=== PATIENT | female | born 2005 | race Two or more races ===

== ENCOUNTER 2025-04-09 22:08 | Emergency (ER) | payer BC, SELFPAY ==
[2025-04-09 22:10] VITALS: BMI 25.3
[2025-04-09 23:10] VITALS: BP 121/53; PULSE 83; RESP 16; TEMP 36.7; O2SAT 99
--- NOTE | 2025-04-09 23:17 | XR_ITS ---
Examination: OB Transvaginal ultrasound of the pelvis, complete Technique: Transvaginal sonographic images pelvis performed using [place] scale imaging Exam date and time: April 09, 2025 11:34 PM INDICATIONS: Pelvic pain nausea vomiting beginning 3 days ago with positive test yesterday FINDINGS: Uterus 7.5 cm with pole 0.4 cm corresponding to 6 weeks 0 day gestational age Cardiac motion 113 bpm No subchorionic hemorrhage Right ovary 3.9 cm arterial flow Lateral view obscured by bowel gas IMPRESSION: Viable intrauterine gestation 6 weeks 0 days.
--- NOTE | 2025-04-09 23:18 | PD.EDRME ---
Rapid Medical Screening Exam [facility] Arrival date/time: 04/09/25 22:08 20F with history of marijuana use presents to ED with 3 days of N/V, ab/pelvic pain/cramping, and non-bloody diarrhea. Patient is about 6 weeks and has had some vaginal bleeding that resolved. Patient took Zofran w/o relief. Patient states she's also had fevers/chills, but denies URI symptoms. Chief Complaint: Nausea/Vomiting/Diarrhea Time Seen by Provider: 04/09/25 23:16 Vital signs: Vital Signs Temperature 98.1 F 04/09/25 23:10 Pulse Rate 83 04/09/25 23:10 Respiratory Rate 16 04/09/25 23:10 Blood Pressure 121/53 L 04/09/25 23:10 Pulse Oximetry (%) 99 04/09/25 23:10 Oxygen Delivery Method Room Air 04/09/25 23:10
[2025-04-10 00:24] LABS: Lactate (Lactic Acid) 1.1 mMol/L (0.4-2.0)
[2025-04-10] MEDS: DiphenhydrAMINE INJ 50 MG/ML VIAL 12.5 MG IVP (00:27)
[2025-04-10] MEDS: METOCLOPRAMIDE INJ 5 MG/ML VIAL 2 ML 10 MG IVP (00:29)
[2025-04-10 00:30] LABS: Basophils % (Auto) 1 % (0-2.5); Eosinophils % (Auto) 0 % (0-10); Hematocrit 35.4 % (36.0-46.0); Hemoglobin 12.8 g/dL (12.0-16.0); Immature Granulocytes % (Auto) 0 % (0-0); Immature Granulocytes Auto 0.02 Thou/mm3 (0.00-0.00); Lymphocytes # (Auto) 1.9 Thou/mm3 (1.0-4.8); Lymphocytes % (Auto) 25 % (10-50); Mean Corpuscular HGB Conc 36.2 g/dl (31.0-37.0); Mean Corpuscular Hemoglobin 30.3 pg (25.0-35.0); Mean Corpuscular Volume 84 fL (80-100); Monocytes # (Auto) 0.6 Thou/mm3 (0.0-0.8); Monocytes % (Auto) 8 % (0-12); Neutrophils # (Auto) 4.9 Thou/mm3 (1.8-7.7); Neutrophils % (Auto) 66 % (37-80); Nucleated Red Blood Cell % 0 /100 WBC (0); Platelet Count 344 Thou/mm3 (140-440); RDW Standard Deviation 38.8 fL (36.4-46.3); Red Blood Count 4.22 Miln/mm3 (4.00-5.20); White Blood Count 7.4 Thou/mm3 (3.6-11.0)
[2025-04-10 00:31] LABS: Bacteria,Urine Rare; Bilirubin,Urine Negative (Negative); Blood,Urine Negative (Negative); Clarity,Urine Turbid (Clear/Hazy); Collection Type, Urine Clean Catch; Color,Urine Yellow (Lt Yel-Yel); Glucose, Urine Negative (Negative); Ketones,Urine 4+ (Negative); Leukocyte Esterase,Urine Negative (Negative); Nitrite,Urine Negative (Negative); Protein,Urine 2+ (Neg - Trace); RBC,Urine 20 /hpf (0-3); Specific Gravity,Urine 1.046 (1.001-1.035); Squamous Epithelial Cell,Urine 5 /hpf (0-5); WBC,Urine 6 /hpf (0-5)
[2025-04-10 00:37] LABS: Amphetamine/Methamp Scrn,U Negative (Negative); Barbiturate Screen,Urine Negative (Negative); Benzodiazepines Screen,Urine Negative (Negative); Benzoylecgonine Screen, Ur Negative (Negative); Fentanyl Screen,Urine Negative (Negative); Opiate Screen,Urine Negative (Negative); THC Screen,Urine Positive (Negative)
[2025-04-10 00:41] VITALS: BP 125/85; PULSE 70; RESP 16; TEMP 37; O2SAT 99
[2025-04-10 00:49] LABS: Alanine Aminotransferase 14 U/L (10-49); Albumin/Globulin Ratio 1.9 (1.2-2.2); Alcohol, Blood Medical < 3.0 mg/dL (0-10.0); Alkaline Phosphatase 61 U/L (46-116); Anion Gap 12 (7-16); Aspartate Amino Transferase 15 U/L (0-34); BUN/Creatinine Ratio 10 Ratio (12-20); Blood Urea Nitrogen 9 mg/dL (9-23); Calcium 9.2 mg/dL (8.3-10.6); Calcium (Corrected) 9.2 mg/dL (8.5-10.1); Carbon Dioxide 23.8 mMol/L (20.0-31.0); Chloride 102 mMol/L (98-107); Creatinine (Component) 0.9 mg/dL (0.6-1.3); Globulin 2.7 gm/dL (2.3-3.5); Glucose 95 mg/dL (74-106); Lipase 36 U/L (12-53); Osmolality,Calculated 274 (275-295); Potassium 3.4 mMol/L (3.4-5.1); Sodium 138 mMol/L (136-145); Total Protein 7.7 gm/dL (5.7-8.2); eGFR > 60 See Note
[2025-04-10 00:55] LABS: Procalcitonin < 0.04 ng/ml (0.0-0.49)
[2025-04-10 01:11] VITALS: BP 115/80; PULSE 70; RESP 16; TEMP 37; O2SAT 99
[2025-04-10 01:23] LABS: Beta HCG,Quantitative 45687 mIU/mL (<5.0)
--- NOTE | 2025-04-10 01:52 | PRELIM_ITS ---
Obstetric ultrasound ( transvaginal) with Doppler and wave Doppler spectral analysis. April 09, 2025 at 2334 hours Clinical history: Pain/bleeding; 6 weeks. Technique: Real-time ultrasound was performed using Duplex scanning including arterial inflow, venous outflow, color and spectral Doppler analysis of both ovaries. Comparison: No prior study is available for comparison. Findings: There is an intrauterine gestation with a single live fetus of mean gestational age 6 weeks and 1 days (CRL= 0.44 cm). cardiac activity is present at heart rate of 113 beats per minute. The yolk sac measures 0.4 cm. The uterus measures 7.5 x 5.1 x 6.2 cm. The right ovary measures 3.9 x 2.9 x 3.1 cm and is unremarkable. Normal blood flow in the right ovary with normal wave Doppler spectral analysis. The left ovary was not visualized. There is no free fluid in the pelvis. No abnormalities detected by Doppler. Impression: Intrauterine gestation with a single live fetus of mean gestational age 6 weeks and 1 days. Report Electronically Signed By: Krishan Stinson 04/10/2025 1:51:55 AM [EST]
--- NOTE | 2025-04-10 02:57 | PD.EDNV ---
Nausea/Vomit./Diarrhea-RME/HPI General Chief complaint: Nausea/Vomiting/Diarrhea Stated complaint: NAUSEA VOMITING FEVER Time Seen by Provider: 04/09/25 23:16 Source: patient Arrival date/time: 04/09/25 22:08 Mode of arrival: ambulatory Limitations: no limitations RME / HPI RME / HPI Narrative: 04/09/25 22:08 20F with history of marijuana use presents to ED with 3 days of N/V, ab/pelvic pain/cramping, and non-bloody diarrhea. Patient is about 6 weeks and has had some vaginal bleeding that resolved. Patient took Zofran w/o relief. Patient states she's also had fevers/chills, but denies URI symptoms. DR. FLETCHER?S MAIN ED EVALUATION: 20-year-old female with history of marjuana use and recent history of presenting to the emergency department via private auto who is presenting for chief complaint of nausea, vomiting, diarrhea x 3 days. Patient denies any other associated symptoms or medical complaints. - PMH:?Denies - PSH: Denies - Social history: Marijuana - Current medications: Reviewed PCP is Vickey Yeboah MD MD complaint: nausea, vomiting and diarrhea Onset (ago): day(s) (3) Description of Diarrhea: water Associated Abdominal Pain: Yes Context: other (Recent diagnosis) Associated symptoms: fever/chills Related Data Home Medications ?Medication ?Instructions ?Recorded ?Confirmed acetaminophen 500 mg tablet 500 mg PO Q6H PRN Pain 12/03/19 12/03/19 (Tylenol Extra Strength) Previous Rx's ?Medication ?Instructions ?Recorded ondansetron 4 mg disintegrating 4 mg PO Q8H PRN nausea and 12/03/19 tablet vomiting #14 tabs Allergies Allergy/AdvReac Type Severity Reaction Status Date / Time No Known Allergies Allergy Verified 04/09/25 22:16 Review of Systems Review of Systems Systems Reviewed: All systems reviewed, normal except as documented Constitutional Constitutional: Reports fever(s) Gastrointestinal Gastrointestinal: Reports diarrhea, Reports nausea and Reports vomiting Genitourinary Genitourinary: Reports other (6-weeks ) Past Medical History Past Medical History CARDIAC: Negative Cardiac Disorders or Congestive Heart Failure RESPIRATORY: Negative Chronic Obstructive Pulmonary Disease (COPD) or Asthma GENITOURINARY: Negative Renal Disease ENDOCRINE: Negative Diabetes Mellitus Type 1 or Diabetes Mellitus Type 2 HEMATOLOGIC: Negative Sickle Cell Disease Social History SMOKING STATUS: Never smoker SUBSTANCE USE: marijuana ED Exam General Limitations: Present no limitations Head Head exam: Present atraumatic, normocephalic and normal inspection Eye Eye exam: Present normal appearance, PERRL and EOMI; Absent conjunctival injection ENT ENT exam: Present normal exam, normal oropharynx, mucous membranes moist and TM's normal bilaterally Neck Neck exam: Present normal inspection, full ROM and trachea midline; Absent tenderness Chest Chest inspection: Present normal inspection and symmetric chest wall rise; Absent tenderness Respiratory Respiratory exam: Present normal lung sounds bilaterally; Absent respiratory distress, wheezes or stridor Cardiovascular Cardiovascular exam: Present regular rate, normal rhythm and normal heart sounds Abdominal Exam Abdominal exam: Present soft and normal bowel sounds; Absent distention, tenderness, guarding, rebound or rigidity Extremities Exam Extremities exam: Present normal inspection, full ROM and normal capillary refill; Absent tenderness or pedal edema Back Exam Back exam: Present normal inspection and full ROM; Absent tenderness, CVA tenderness (R), CVA tenderness (L) or paraspinal tenderness Neurological Exam Neurological exam: Present alert, oriented X3, CN II-XII intact and normal gait Psychiatric Psychiatric exam: Present normal affect and normal mood; Absent agitated or anxious Skin Skin exam: Present warm, dry, intact and normal color; Absent rash or diaphoresis Course Quality Measures none Orders Category Date Time Status US OB transvaginal Stat Exams 04/09/25 23:17 Taken ABO/RH Type Stat Lab 04/09/25 23:17 Completed Alcohol, Blood Medical Stat Lab 04/09/25 23:17 Completed Beta HCG,Quantitative Stat Lab 04/09/25 23:17 Completed CBC Stat Lab 04/09/25 23:17 Completed CMP [Comprehensive Metabolic Panel] Stat Lab 04/09/25 23:17 Completed Drug Screen,Urine Stat Lab 04/10/25 00:14 Completed Lactate (Lactic Acid) Stat Lab 04/09/25 23:20 Completed Lipase Stat Lab 04/09/25 23:17 Completed Procalcitonin Stat Lab 04/09/25 23:17 Completed UA [Urinalysis] Stat Lab 04/09/25 23:17 Completed Urine Culture Stat Lab 04/10/25 00:14 Received DiphenhydrAMINE INJ [Benadryl Inj] Med 04/10/25 00:20 Discontinued 12.5 mg IVP X1 ONE Metoclopramide Inj [Reglan Inj] Med 04/09/25 23:17 Discontinued 10 mg IM X1 ONE Metoclopramide Inj [Reglan Inj] Med 04/10/25 00:20 Discontinued 10 mg IVP X1 ONE Vital Signs Vital signs: Vital Signs Temperature 98.1 F 04/09/25 23:10 Pulse Rate 83 04/09/25 23:10 Respiratory Rate 16 04/09/25 23:10 Blood Pressure 121/53 L 04/09/25 23:10 Pulse Oximetry (%) 99 04/09/25 23:10 Oxygen Delivery Method Room Air 04/09/25 23:10 Nausea/Vomiting/Diarrhea MDM Narrative MDM Narrative:: Scribe Attestation: 04/09/2025 Mayelin Potter am scribing for and in the presence of Dr. Fletcher. Provider Notation: Although this document has been carefully reviewed, there may still be some phonetic and other typographical errors.? These errors are purely grammatical due to imperfections in the software program and should not be construed in any way to compromise the substance of the patient's medical care during this visit. 20-year-old female with history of marjuana use and recent history of presenting to the emergency department via private auto who is presenting for chief complaint of nausea, vomiting, diarrhea, x 3 days. ROS: nausea, vomiting, diarrhea, EDC: Differential diagnoses include Patient data External records reviewed:: [facility] previous records (No recent ED records available for review.) Clinical information provided by:: patient Social determinants that could affect healthcare access:: substance use (Marijuana) Patient has the following chronic illnesses:: None reported How is presenting disease/condition affected by chronic disease/condition?: no chronic disease Evaluation data The following diagnostics were reviewed and interpreted by me:: lab results and radiology exam(s) Lab and/or radiology exams considered but not ordered:: None Interpretation Summary: RADIOLOGY Transvaginal US: Per my interpretation, Transvaginal US shows 6-week intrauterine . Pending official radiology read. LABS Hct 35.4%, Immature Gran # 0.02. BUN/Creatinine Ratio 10, Calculated Osmolality 274. Urine Clarity Turbid, Urine Specific [place] 1.046, Urine Protein 2+, Urine Ketones 4+, Urine RBC 20, Urine WBC 6. Marijuana Positive. Blood Type O+. Medications / Prescriptions Medications / Prescriptions considered but not ordered:: None Medication administrations:: Medication Administration History Discontinued Medications Diphenhydramine HCl (Diphenhydramine Inj 50 Mg/Ml Vial) 12.5 mg IVP X1 ONE Stop: 04/10/25 00:21 Last Admin: 04/10/25 00:27 Dose: 12.5 mg Documented By: DT Metoclopramide HCl (Metoclopramide Inj 5 Mg/Ml Vial 2 Ml) 10 mg IM X1 ONE; Protocol Stop: 04/09/25 23:18 Last Admin: 04/10/25 00:21 Dose: Not Given Documented By: DT Non-Admin Reason: Cancelled by Provider Metoclopramide HCl (Metoclopramide Inj 5 Mg/Ml Vial 2 Ml) 10 mg IVP X1 ONE; Protocol Stop: 04/10/25 00:21 Last Admin: 04/10/25 00:29 Dose: 10 mg Documented By: DT See above if any Consultations Consultation(s) initiated? (list below): No Diagnosis Nausea Differential Diagnosis: food poisoning, gastroenteritis, drug-induced nausea and vomiting, dehydration and other (, gastroenteritis, viral illness) Most likely diagnosis given after review of the tests above:: Nausea, Vomiting, First Trimester Admission Indicated Admission indicated?: not indicated Explain why admission is indicated or not indicated:: Does not meet admission criteria Admission Request Was there a request for admission?: No Disposition Plan Disposition Plan: Discharge Discharge Attestation Discharge Attestation: The patient and all family members were given an opportunity to ask questions and understood the discharge instructions. Discharge instructions specifically effects, indications for sooner follow up or return to the emergency department, and the expected course of current diagnosis. Patient condition: Stable Discharge Plan Plan Patient Disposition: HOME (Self Care) Patient condition on transfer: Benefits outweigh risks Prescriptions/Referrals Prescriptions/Med Rec: No Action acetaminophen [Tylenol Extra Strength] 500 mg Tablet 500 mg PO Q6H PRN (Reason: Pain) ondansetron 4 mg tablet,disintegrating 4 mg PO Q8H PRN (Reason: nausea and vomiting) Qty: 14 0RF Problem List Clinical Impression: Nausea & vomiting, First trimester Patient/Caregiver Discharge Instructions Education Materials: First Trimester, ED Marijuana Abuse, ED Vomiting (Adult) Additional Instructions: DISCHARGE INSTRUCTIONS Follow-up with your OB and or scheduled appointment for your . Return to emergency department for worsening symptoms, or any other concerns. Please avoid greasy or fatty foods. Even though you have been discharged from the Emergency Department, there are several things that you should do to ensure that you receive proper care: 1. DO READ your discharge instructions as these contain important information concerning your medical care. 2. If medication has been prescribed for your condition, fill the prescription as soon as possible and follow the directions on the medication. 3. RETURN AT ONCE TO THE EMERGENCY DEPARTMENT if you have any problems or concerns. These include but are not limited to fever, worsening pain(belly, chest, head, etc?), worsening shortness of breath, uncontrollable bleeding, inability to tolerate food and water, or any condition that makes you question your well-being. Also, if your symptoms do not improve in the next 12-24 hours, return to the ER or seek medical care immediately. 4. Be sure to follow up with your regular physician or specialist as instructed at discharge as this is the best way to ensure that you receive the very best of care. If you do not have a primary care physician, please contact a physician group and make an appointment. 5. Please visit [employer] for coupons regarding your prescriptions. It is a free service for you to use and can help reduce the cost of your medication. We would like to thank you for coming today and our hope is that we served you and your family well during your stay Print Language: Tuvaluan Stand Alone Forms: [employer] Info., Patient Portal Info Letter
[2025-04-10 04:10] VITALS: BP 115/85; PULSE 85; RESP 16; TEMP 37; O2SAT 99
== END 2025-04-10 04:13 | disposition home or self-care (01) ==
PROVIDERS: Physician Assistant; Emergency Provider Emergency Medicine; PCP Family Medicine
DX: O21.9 Vomiting of pregnancy, unspecified (principal); Z3A.01 Less than 8 weeks gestation of pregnancy
CPT/HCPCS: 36415; 76817; 80053; 80307; 80320; 81001; 83605; 83690; 84145; 84702; 85025; 86900; 86901; 87086; 96374; 96375; 99284; J1200; J2765; G0480

== ENCOUNTER 2025-04-12 17:08 | Emergency (ER) | payer BC, SELFPAY ==
[2025-04-12 17:47] VITALS: BP 123/80; PULSE 93; RESP 17; TEMP 36.8; O2SAT 99
--- NOTE | 2025-04-12 17:52 | PD.EDNV ---
Nausea/Vomit./Diarrhea-RME/HPI General Chief complaint: Nausea/Vomiting/Diarrhea Stated complaint: CYCLIC VOMITING AT 6 WKS PREG Time Seen by Provider: 04/12/25 17:13 Arrival date/time: 04/12/25 17:08 20-year-old female G1, P0 6 weeks gestation reports with complaints of persistent vomiting. Patient has not yet seen her [facility] she was evaluated 3 days ago and diagnosed with cyclic vomiting patient's returning today as she is unable to tolerate food or beverages. She denies fever chills shortness of breath chest pain abdominal pain vaginal bleeding dysuria urinary urgency frequency or hematuria Limitations: no limitations Related Data Home Medications ?Medication ?Instructions ?Recorded ?Confirmed acetaminophen 500 mg tablet 500 mg PO Q6H PRN Pain 12/03/19 12/03/19 (Tylenol Extra Strength) Previous Rx's ?Medication ?Instructions ?Recorded ondansetron 4 mg disintegrating 4 mg PO Q8H PRN nausea and 12/03/19 tablet vomiting #14 tabs ondansetron 4 mg disintegrating 4 mg PO BID #10 tabs 04/12/25 tablet Allergies Allergy/AdvReac Type Severity Reaction Status Date / Time No Known Allergies Allergy Verified 04/12/25 17:10 Past Medical History Past Medical History CARDIAC: Negative Cardiac Disorders or Congestive Heart Failure RESPIRATORY: Negative Chronic Obstructive Pulmonary Disease (COPD) or Asthma GENITOURINARY: Negative Renal Disease ENDOCRINE: Negative Diabetes Mellitus Type 1 or Diabetes Mellitus Type 2 HEMATOLOGIC: Negative Sickle Cell Disease Social History SMOKING STATUS: Never smoker SUBSTANCE USE: marijuana ED Exam General Limitations: Present no limitations General appearance: Present alert and in no apparent distress Head Head exam: Present atraumatic Eye Eye exam: Present normal appearance, PERRL and EOMI ENT ENT exam: Present normal exam, normal oropharynx and mucous membranes moist Neck Neck exam: Present normal inspection, full ROM and trachea midline Chest Chest inspection: Present normal inspection and symmetric chest wall rise Respiratory Respiratory exam: Present normal lung sounds bilaterally Cardiovascular Cardiovascular exam: Present regular rate, normal rhythm and normal heart sounds Abdominal Exam Abdominal exam: Present soft and normal bowel sounds Extremities Exam Extremities exam: Present normal inspection and full ROM Back Exam Back exam: Present normal inspection and full ROM Neurological Exam Neurological exam: Present alert, oriented X3 and CN II-XII intact Psychiatric Psychiatric exam: Present normal affect and normal mood Skin Skin exam: Present warm, dry, intact and normal color Course Quality Measures none Orders Category Date Time Status Ondansetron Odt [Zofran Odt] Med 04/12/25 17:51 Once 4 mg PO X1 ONE Vital Signs Vital signs: Vital Signs Temperature 98.2 F 04/12/25 17:47 Pulse Rate 93 04/12/25 17:47 Respiratory Rate 17 04/12/25 17:47 Blood Pressure 123/80 04/12/25 17:47 Pulse Oximetry (%) 99 04/12/25 17:47 Nausea/Vomiting/Diarrhea Patient data External records reviewed:: None Clinical information provided by:: patient Social determinants that could affect healthcare access:: none Patient has the following chronic illnesses:: none How is presenting disease/condition affected by chronic disease/condition?: no chronic disease Evaluation data The following diagnostics were reviewed and interpreted by me:: other (specify) Lab and/or radiology exams considered but not ordered:: none Interpretation Summary: n/a Medications / Prescriptions Medications / Prescriptions considered but not ordered:: none Medication administrations:: zofran Consultations Consultation(s) initiated? (list below): No Diagnosis Nausea Differential Diagnosis: food poisoning, gastroenteritis and dehydration Most likely diagnosis given after review of the tests above:: Admission Indicated Admission indicated?: not indicated Admission Request Was there a request for admission?: No Disposition Plan Disposition Plan: Discharge Discharge Attestation Discharge Attestation: The patient and all family members were given an opportunity to ask questions and understood the discharge instructions. Discharge instructions specifically effects, indications for sooner follow up or return to the emergency department, and the expected course of current diagnosis. Patient condition: Stable Discharge Plan Plan Patient Disposition: HOME (Self Care) Prescriptions/Referrals Prescriptions/Med Rec: New ondansetron 4 mg tablet,disintegrating 4 mg PO BID Qty: 10 0RF No Action acetaminophen [Tylenol Extra Strength] 500 mg Tablet 500 mg PO Q6H PRN (Reason: Pain) ondansetron 4 mg tablet,disintegrating 4 mg PO Q8H PRN (Reason: nausea and vomiting) Qty: 14 0RF Problem List Clinical Impression: Nausea & vomiting, First trimester Patient/Caregiver Discharge Instructions Education Materials: Your First Trimester ... Additional Instructions: Take medication as directed follow-up with your [facility] Print Language: Hungarian Stand Alone Forms: [employer] Info., Patient Portal Info Letter
[2025-04-12] MEDS: ONDANSETRON ODT 4 MG TABRAP PO (18:05)
== END 2025-04-12 18:09 | disposition home or self-care (01) ==
LOC: SERX 18:03
PROVIDERS: Emergency Provider Family Medicine; PCP Family Medicine
DX: O21.9 Vomiting of pregnancy, unspecified (principal); Z3A.01 Less than 8 weeks gestation of pregnancy
CPT/HCPCS: 99282; Q0162